=== PATIENT | male | born 1945 | race Caucasian/White ===

== ENCOUNTER 2016-11-08 10:25 | Emergency (ER) | payer BC ==
[~2016-11-08] VITALS: Ht 175.3 cm; Wt 80.7 kg
--- NOTE | 2016-11-08 10:25 | NUR ---
sharp lower back pain radiates to RLE and back pain x 10 days, worse today. nad noted. pt aao x4, amb with steady gait, 10/10 pain. pending md fall.
[2016-11-08] MEDS ORDERED: KETOROLAC TROMETHAMINE INJ 30 MG/ML VIAL ONE (10:36)
[2016-11-08] MEDS ORDERED: DEXAMETHASONE SOD PHOSPHATE 10 MG/ML VIAL ONE (10:36)
[2016-11-08] MEDS ORDERED: HYDROCODONE/APAP 5/325MG 1 EACH TABLET ONE (10:36)
[2016-11-08 10:47] LABS: BASOPHILS % (AUTO) 0.3 % (0.0-2.0); EOSINOPHILS # (AUTO) 0.2 /CMM (0.0-0.7); HEMATOCRIT 46 % (39-51); HEMOGLOBIN 15.8 g/dL (13.5-17.5); LYMPHOCYTES % (AUTO) 27.3 % (20.0-44.0); MEAN CORPUSCULAR HEMOGLOBIN 35 PG (26.0-33.0); MEAN CORPUSCULAR HGB CONC 35 g/dl (31.0-36.0); MEAN CORPUSCULAR VOLUME 101 fL (80-96); MONOCYTES # (AUTO) 0.4 /CMM (0.1-1.30); MONOCYTES % (AUTO) 5.8 % (2.0-12.0); NEUTROPHILS # (AUTO) 4.6 /CMM (1.8-8.9); NEUTROPHILS % (AUTO) 63.6 % (43.0-81.0); PLATELET COUNT (AUTO) 153 /CMM (150-450); RDW COEFFICIENT OF VARIATION 13.2 (11.5-15.0); RED BLOOD CELL COUNT(AUTO) 4.51 MIL/uL (4.5-6.0); WHITE BLOOD COUNT (AUTO) 7.2 K/uL (4.3-11.0)
[2016-11-08 10:55] LABS: CALCIUM, SERUM 8.6 mg/dL (8.5-10.1); CREATININE 1.3 mg/dL (0.6-1.3); POTASSIUM 3.2 mmol/L (3.5-5.1)
[2016-11-08] MEDS ORDERED: DEXAMETHASONE SOD PHOSPHATE 10 MG/ML VIAL IV ONE (11:00)
[2016-11-08] MEDS ORDERED: HYDROCODONE/APAP 5/325MG 1 EACH TABLET PO ONE (11:00)
[2016-11-08] MEDS ORDERED: KETOROLAC TROMETHAMINE INJ 30 MG/ML VIAL IV ONE (11:00)
[2016-11-08] MEDS ORDERED: MORPHINE SULFATE INJ 4 MG/ML DISP.SYRIN ONE (11:04)
[2016-11-08] MEDS ORDERED: ONDANSETRON HCL/PF 4 MG/2 ML VIAL ONE (11:04)
[2016-11-08] MEDS ORDERED: POTASSIUM CHLORIDE 20 MEQ TAB.PRT.SR PO ONE ×2 (11:15→11:30)
[2016-11-08] MEDS ORDERED: LORAZEPAM INJ 2 MG/ML VIAL ONE (11:20)
[2016-11-08] MEDS ORDERED: LORAZEPAM INJ 2 MG/ML VIAL IV ONE (11:30)
[2016-11-08] MEDS ORDERED: ONDANSETRON HCL/PF 4 MG/2 ML VIAL IV ONE (11:30)
[2016-11-08] MEDS ORDERED: MORPHINE SULFATE INJ 10 MG/ML DISP.SYRIN IV ONE (11:30)
[2016-11-08] MEDS ORDERED: IOHEXOL-300 100 ML VIAL IV ONE (11:40)
[2016-11-08] MEDS ORDERED: CT SWABBABLE VALVE TRANS SET 1 EA INFUS.SET MC ONE (11:40)
[2016-11-08] MEDS ORDERED: IV NS 0.9% 250 ML IV ONE (11:40)
--- NOTE | 2016-11-08 12:10 | NUR ---
back from ct scan
[2016-11-08 14:07] VITALS: BP 134/72
== END 2016-11-08 14:08 | disposition home or self-care (01) ==
LOC: ER 10:27
DX: M54.31 Sciatica, right side (principal); Z88.6 Allergy status to analgesic agent
CPT/HCPCS: 36415; 72131-TC; 80048-TC; 85025-TC; A4606; J1100; J1885; J2060; J2270; J2405; J7050; Q9967; Z7610

== ENCOUNTER 2021-05-08 21:05 | Emergency (ER) | payer BC, MEDICARE, OTHER ==
[~2021-05-08] VITALS: Ht 175.3 cm; Wt 79.4 kg
--- NOTE | 2021-05-08 21:17 | NUR ---
BIBRA FROM HOME C/O MULTIPLE SUPERFICIAL R ARM LACERATIONS AND L BIG TOE NAIL INJURY FOLLOWING A HOME INVASION. PT ALERT AND ORIENTED NO NEURO DEFICITS NOTED PLACED IN CERVICAL COLLAR. PLACED INTO GOWN AND MONITOR AND PULSE OX. VITAL SIGNS STABLE MD WAS AT BEDSIDE FOR EVAL.
--- NOTE | 2021-05-08 21:17 | NUR ---
Note alfreda in EDM - 05/08/21 at 2308 by JERE BIBRA FROM HOME C/O MULTIPLE SUPERFICIAL R ARM LACERATIONS AND B TOE NAIL BED INJURY FOLLOWING A HOME INVASION. PT ALERT AND ORIENTED NO NEURO DEFICITS NOTED PLACED IN CERVICAL COLLAR. PLACED INTO GOWN AND MONITOR AND PULSE OX. VITAL SIGNS STABLE MD WAS AT BEDSIDE FOR EVAL.
--- NOTE | 2021-05-08 21:50 | NUR ---
BROUGHT TO CT
[2021-05-08] MEDS ORDERED: BUPIVACAINE 0.5 % PF 150 MG/30 ML VIAL ONE (22:28)
[2021-05-08] MEDS ORDERED: LIDOCAINE 0.5% HCL 50 ML VIAL ONE (22:28)
[2021-05-08] MEDS ORDERED: TDAP [DIPH/PERTUSSIS/TET] 0.5 ML VIAL IM ONE ×2 (22:30→22:53)
[2021-05-08] MEDS ORDERED: CEPH500T PO (22:47)
[2021-05-08] MEDS ORDERED: CEPHALEXIN MONOHYDRATE 500 MG CAPSULE PO ONE ×2 (22:52→23:00)
[2021-05-08] MEDS ORDERED: HYDROCODONE/APAP 5/325MG TABLET ONE (22:52)
[2021-05-08] MEDS ORDERED: HYDROCODONE/APAP 5/325MG TABLET PO ONE (23:00)
[2021-05-08 23:24] VITALS: BP 136/84
--- NOTE | 2021-05-08 23:24 | NUR ---
Patient discharged to home in stable condition. Written and verbal after care instructions given. Patient verbalizes understanding of instruction.
== END 2021-05-08 23:25 | disposition home or self-care (01) ==
LOC: ER 21:08
DX: S13.4XXA Sprain of ligaments of cervical spine, initial encounter (principal); S50.11XA Contusion of right forearm, initial encounter; S50.311A Abrasion of right elbow, initial encounter; S91.202A Unspecified open wound of left great toe with damage to nail, initial encounter; Z90.49 Acquired absence of other specified parts of digestive tract; Z98.890 Other specified postprocedural states; Y08.89XA Assault by other specified means, initial encounter; Y93.89 Activity, other specified; Y92.098 Other place in other non-institutional residence as the place of occurrence of the external cause; Y99.8 Other external cause status
CPT/HCPCS: 11730; 72125; 73080; 73630; 90471; 90715; 99284; A6403 ×3; J3490 ×2

== ENCOUNTER 2024-09-17 22:49 | Inpatient (IN) | payer MEDICARE, OTHER ==
[~2024-09-17] VITALS: Ht 165.1 cm; Wt 68.6 kg
[~2024-09-17 22:49] MED LIST: CEPH500T PO
[2024-09-17] MEDS ORDERED: METOCLOPRAMIDE HCL 10 MG/2 ML VIAL ONE (23:25)
[2024-09-17] MEDS ORDERED: GLUCAGON,HUMAN RECOMBINANT 1 MG/VIAL VIAL ONE (23:25)
[2024-09-17] MEDS: GLUCAGON,HUMAN RECOMBINANT 1 MG/VIAL VIAL IV ONE (23:30)
[2024-09-17] MEDS: IV NS 0.9% 1,000 ML BAG IV ONE (23:30)
[2024-09-17] MEDS: METOCLOPRAMIDE HCL 10 MG/2 ML VIAL IV ONE (23:30)
[2024-09-17 23:42] LABS: BASOPHILS # (AUTO) 0.1 K/uL (0.0-0.2); BASOPHILS % (AUTO) 0.7 % (0.0-2.0); EOSINOPHILS # (AUTO) 0.4 K/uL (0.0-0.7); HEMATOCRIT 33 % (39-51); HEMOGLOBIN 11.3 g/dL (13.5-17.5); LYMPHOCYTES # (AUTO) 2.3 K/uL (0.8-4.8); LYMPHOCYTES % (AUTO) 28.6 % (20.0-44.0); MEAN CORPUSCULAR HEMOGLOBIN 31 PG (26.0-33.0); MEAN CORPUSCULAR HGB CONC 34 g/dl (31.0-36.0); MEAN CORPUSCULAR VOLUME 92 fL (80-96); MONOCYTES # (AUTO) 0.7 K/uL (0.1-1.30); NEUTROPHILS # (AUTO) 4.6 K/uL (1.8-8.9); NEUTROPHILS % (AUTO) 56.7 % (43.0-81.0); PLATELET COUNT (AUTO) 259 K/uL (150-450); RED BLOOD CELL COUNT(AUTO) 3.61 MIL/uL (4.5-6.0); RED CELL DISTRIBUTION WIDTH 14.1 % (11.5-15.0); WHITE BLOOD COUNT (AUTO) 8.2 K/uL (4.3-11.0)
[2024-09-17 23:53] LABS: CALCIUM, SERUM 9.5 mg/dL (8.5-10.1); CREATININE 1.4 mg/dL (0.6-1.3); POTASSIUM 3.8 mmol/L (3.5-5.1)
[2024-09-17 23:54] LABS: INR 1.15 (0.91-1.10); PARTIAL THROMBOPLASTIN TIME 29.6 SEC (24.3-34.3); PROTHROMBIN TIME 12.1 SECS (9.2-11.1)
[2024-09-18] VITALS (33 sets, daily range): BP systolic 94–136; BP diastolic 59–81; TEMP 98–98.2; O2SAT 96–99
[2024-09-18] MEDS ORDERED: IV NS 0.9% 250 ML IV ONE (00:27)
[2024-09-18] MEDS ORDERED: CT SWABBABLE VALVE TRANS SET 1 EA INFUS.SET MC ONE (00:27)
[2024-09-18] MEDS ORDERED: IOHEXOL-300 100 ML VIAL IV ONE (00:27)
[2024-09-18] MEDS: methylPREDNISolone SOD SUCC 125 MG/2ML VIAL IV ONE (01:00)
[2024-09-18] MEDS: FAMOTIDINE/PF INJ 20 MG/2 ML VIAL IV ONE ×2 (01:00→03:26)
[2024-09-18] MEDS: diphenhydrAMINE HCL 50 MG/ML VIAL IV ONE (01:00)
[2024-09-18] MEDS: ALBUTEROL FS 2.5 MG/3 ML VIAL.NEB CONTNEB ONE (01:00)
[2024-09-18] MEDS: IPRATROPIUM NEB FS 0.5 MG/2.5 ML AMPUL.NEB NEB ONE (01:00)
[2024-09-18] MEDS ORDERED: FAMOTIDINE/PF INJ 20 MG/2 ML VIAL IV ONE ×2 (01:19→03:24)
[2024-09-18] MEDS: PROPOFOL 100 ML IV PRN ×2 (01:30→09:15)
[2024-09-18] MEDS ORDERED: PROPOFOL 100 ML ONE ×2 (01:34→07:08)
[2024-09-18] MEDS: EPINEPHRINE (1:1000) 1 MG/ML AMPUL SUBCUT ONE (01:42)
[2024-09-18] MEDS: IV NS 0.9% 1,000 ML BAG IV ONE (01:58)
[2024-09-18] MEDS ORDERED: diphenhydrAMINE HCL 50 MG/ML VIAL ONE (02:35)
[2024-09-18] MEDS ORDERED: methylPREDNISolone SOD SUCC 125 MG/2ML VIAL ONE (02:35)
[2024-09-18 02:45] LABS: ABG BASE EXCESS -3.9 mmol/L (-2.0-3.0); ABG OXYGEN SATURATION 99.2 % (94.0-98.0); ABG PCO2 33.7 mmHg (35.0-48.0); ABG PH 7.397 (7.350-7.450); ABG PO2 230.7 mmHg (83.0-108.0); ABG TOTAL HEMOGLOBIN 10.6 G/dL (13.5-17.5); COHb 0.2 % (0.5-1.5); O2Hb 98.9 % (94.0-97.0); SITE, ABG RIGHT RADIAL
[2024-09-18 02:46] LABS: MetHb 0.1 % (0.0-1.5); PEEP,BG 5 cm H2O; VT, ABG 500 mL
[2024-09-18] MEDS ORDERED: ALBUTEROL FS 2.5 MG/3 ML VIAL.NEB NEB PRN (04:00)
[2024-09-18] MEDS ORDERED: ONDANSETRON HCL/PF 4 MG/2 ML VIAL IVP PRN (04:00)
[2024-09-18] MEDS ORDERED: ACETAMINOPHEN 650 MG/SUPP.RECT RC PRN (04:00)
[2024-09-18 05:35] LABS: BASOPHILS % (AUTO) 0.2 % (0.0-2.0); EOSINOPHILS % (AUTO) 0.1 % (0.0-6.0); HEMATOCRIT 30 % (39-51); HEMOGLOBIN 10.5 g/dL (13.5-17.5); LYMPHOCYTES # (AUTO) 0.7 K/uL (0.8-4.8); LYMPHOCYTES % (AUTO) 7.1 % (20.0-44.0); MEAN CORPUSCULAR HEMOGLOBIN 32 PG (26.0-33.0); MEAN CORPUSCULAR HGB CONC 35 g/dl (31.0-36.0); MEAN CORPUSCULAR VOLUME 92 fL (80-96); MONOCYTES # (AUTO) 0.2 K/uL (0.1-1.30); MONOCYTES % (AUTO) 2.1 % (2.0-12.0); NEUTROPHILS # (AUTO) 8.9 K/uL (1.8-8.9); NEUTROPHILS % (AUTO) 90.5 % (43.0-81.0); PLATELET COUNT (AUTO) 216 K/uL (150-450); RED BLOOD CELL COUNT(AUTO) 3.27 MIL/uL (4.5-6.0); RED CELL DISTRIBUTION WIDTH 14.1 % (11.5-15.0); WHITE BLOOD COUNT (AUTO) 9.9 K/uL (4.3-11.0)
[2024-09-18 05:49] LABS: CALCIUM, SERUM 8.1 mg/dL (8.5-10.1); CARBON DIOXIDE 28 mmol/L (21-32); CHLORIDE 107 mmol/L (98-107); CREATININE 1.4 mg/dL (0.6-1.3); GLUCOSE 163 mg/dL (74-106); MAGNESIUM 2.1 mg/dL (1.8-2.4); PHOSPHORUS 1.9 mg/dL (2.5-4.9); POTASSIUM 4.2 mmol/L (3.5-5.1); SODIUM SERUM 142 mmol/L (136-145); UREA NITROGEN, BLOOD 20 mg/dL (7-18)
[2024-09-18] MEDS ORDERED: ENOXAPARIN SODIUM 40 MG/0.4 ML DISP.SYRIN SQ ONE (07:39)
[2024-09-18] MEDS: ENOXAPARIN SODIUM 40 MG/0.4 ML DISP.SYRIN SQ SCH (07:43)
[2024-09-18] MEDS: IV NS 0.9% 1,000 ML IV PRN (09:15)
[2024-09-18] MEDS: PANTOPRAZOLE 40 MG VIAL IV SCH (10:09)
[2024-09-18] MEDS: CEFEPIME 2 GM in IV D5W 100 ML IV SCH (10:09)
[2024-09-18] MEDS: VANCOMYCIN 1 GM in IV D5W 250ml IV ONE (11:28)
[2024-09-18] MEDS ORDERED: DOXY-326 PO (11:48)
[2024-09-18] MEDS ORDERED: HYDR-3976 PO (11:48)
[2024-09-18] MEDS ORDERED: BENZ-38 PO (11:48)
[2024-09-18] MEDS ORDERED: AMLO-212 PO (11:48)
[2024-09-18] MEDS ORDERED: ASPI-866 PO (11:48)
[2024-09-18] MEDS ORDERED: MULT-213 PO (11:48)
[2024-09-18] MEDS ORDERED: VITA1TAB56 PO (11:48)
[2024-09-18] MEDS ORDERED: ZOLP10TA2 PO (11:48)
[2024-09-18] MEDS ORDERED: ESOM20CA37 PO (11:48)
[2024-09-18] MEDS: VANCOMYCIN 750 MG in IV D5W 250 ML IV ONE (12:35)
[2024-09-18] MEDS ORDERED: EPINEPHRINE (1:1000) 1 MG/ML AMPUL SUBCUT ONE (13:19)
[2024-09-18] MEDS: Sodium Phosphate 15 MMOL in IV NS 0.9% 245 ML IV SCH (16:12)
[2024-09-19] VITALS (27 sets, daily range): BP systolic 100–152; BP diastolic 55–79; TEMP 97.6–98.5; O2SAT 96–100
[2024-09-19 04:28] LABS: ABG BASE EXCESS -1.7 mmol/L (-2.0-3.0); ABG OXYGEN SATURATION 98.3 % (94.0-98.0); ABG PCO2 29.2 mmHg (35.0-48.0); ABG PH 7.474 (7.350-7.450); ABG PO2 129.9 mmHg (83.0-108.0); ABG TOTAL HEMOGLOBIN 11.6 G/dL (13.5-17.5); COHb 0.3 % (0.5-1.5); MetHb 0.2 % (0.0-1.5); O2Hb 97.8 % (94.0-97.0); PEEP,BG 5 cm H2O; SITE, ABG RIGHT RADIAL; VT, ABG 500 mL
[2024-09-19 04:49] LABS: HEMATOCRIT 27 % (39-51); HEMOGLOBIN 9.4 g/dL (13.5-17.5); LYMPHOCYTES # (AUTO) 1.5 K/uL (0.8-4.8); LYMPHOCYTES % (AUTO) 15.1 % (20.0-44.0); MEAN CORPUSCULAR HEMOGLOBIN 32 PG (26.0-33.0); MEAN CORPUSCULAR HGB CONC 35 g/dl (31.0-36.0); MEAN CORPUSCULAR VOLUME 92 fL (80-96); MONOCYTES # (AUTO) 0.5 K/uL (0.1-1.30); MONOCYTES % (AUTO) 5.7 % (2.0-12.0); NEUTROPHILS # (AUTO) 7.6 K/uL (1.8-8.9); NEUTROPHILS % (AUTO) 79.2 % (43.0-81.0); PLATELET COUNT (AUTO) 183 K/uL (150-450); RED CELL DISTRIBUTION WIDTH 13.6 % (11.5-15.0); WHITE BLOOD COUNT (AUTO) 9.7 K/uL (4.3-11.0)
[2024-09-19 04:58] LABS: CREATININE 1.1 mg/dL (0.6-1.3); MAGNESIUM 2.1 mg/dL (1.8-2.4); POTASSIUM 3.6 mmol/L (3.5-5.1)
[2024-09-19] MEDS: VANCOMYCIN 1 GM in IV D5W 250ml IV SCH (12:03)
[2024-09-19] MEDS ORDERED: MIDAZOLAM HCL 100 MG in IV NS 0.9% 80 ML IV PRN (21:00)
[2024-09-19] MEDS: LORAZEPAM INJ 2 MG/ML VIAL IV PRN (21:12)
[2024-09-19] MEDS: PRECEDEX 400 MCG/100 ML BOTTLE 100 ML IV PRN (21:41)
[2024-09-20] VITALS (30 sets, daily range): BP systolic 104–199; BP diastolic 61–99; TEMP 96.5–98; O2SAT 92–99
[2024-09-20 04:07] LABS: IMMUNOGLOBULIN A, SERUM 709 mg/dL (61-437); IMMUNOGLOBULIN G, SERUM 1631 mg/dL (603-1613); IMMUNOGLOBULIN M, SERUM 17 mg/dL (15-143)
[2024-09-20 04:33] LABS: BASOPHILS % (AUTO) 0.7 % (0.0-2.0); EOSINOPHILS # (AUTO) 0.1 K/uL (0.0-0.7); EOSINOPHILS % (AUTO) 0.8 % (0.0-6.0); HEMATOCRIT 29 % (39-51); HEMOGLOBIN 9.8 g/dL (13.5-17.5); LYMPHOCYTES # (AUTO) 1.9 K/uL (0.8-4.8); LYMPHOCYTES % (AUTO) 30.1 % (20.0-44.0); MEAN CORPUSCULAR HEMOGLOBIN 31 PG (26.0-33.0); MEAN CORPUSCULAR HGB CONC 34 g/dl (31.0-36.0); MEAN CORPUSCULAR VOLUME 92 fL (80-96); MONOCYTES # (AUTO) 0.3 K/uL (0.1-1.30); MONOCYTES % (AUTO) 5.6 % (2.0-12.0); NEUTROPHILS % (AUTO) 62.8 % (43.0-81.0); PLATELET COUNT (AUTO) 164 K/uL (150-450); RED BLOOD CELL COUNT(AUTO) 3.13 MIL/uL (4.5-6.0); RED CELL DISTRIBUTION WIDTH 13.9 % (11.5-15.0); WHITE BLOOD COUNT (AUTO) 6.3 K/uL (4.3-11.0)
[2024-09-20 05:00] LABS: CALCIUM, SERUM 8.1 mg/dL (8.5-10.1); CREATININE 1.1 mg/dL (0.6-1.3); MAGNESIUM 2.4 mg/dL (1.8-2.4); PHOSPHORUS 2.6 mg/dL (2.5-4.9); POTASSIUM 3.7 mmol/L (3.5-5.1)
[2024-09-20 06:09] LABS: FOLIC ACID 12.3 ng/mL (>3.0)
[2024-09-20 07:12] LABS: FREE KAPPA LT CHAINS SERUM 32.3 mg/L (3.3-19.4); FREE LAMBDA LT CHAIN SERUM 38.3 mg/L (5.7-26.3); KAPPA/LAMBDA RATIO SERUM 0.84 (0.26-1.65)
[2024-09-20] MEDS: ENOXAPARIN SODIUM 40 MG/0.4 ML DISP.SYRIN SQ SCH (08:48)
[2024-09-20] MEDS: IV 1/2NS 1000 ML 1,000 ML IV PRN (13:45)
[2024-09-20 17:07] LABS: *SPE A/G RATIO 0.6 (0.7-1.7); *SPE ALBUMIN 2.3 g/dL (2.9-4.4); *SPE ALPHA-1-GLOBULIN 0.4 g/dL (0.0-0.4); *SPE ALPHA-2-GLOBULIN 0.9 g/dL (0.4-1.0); *SPE BETA GLOBULIN 1.1 g/dL (0.7-1.3); *SPE M-SPIKE Not Observed g/dL (Not Observed); *SPE PROTEIN TOTAL 6.3 g/dL (6.0-8.5); *SPEGAMMA GLOBULIN 1.7 g/dL (0.4-1.8)
[2024-09-21] VITALS (92 sets, daily range): BP systolic 61–184; BP diastolic 41–82; TEMP 96.5–98.3; O2SAT 83–100
[2024-09-21] MEDS: NOREPINEPHRINE 8 MG in IV D5W 242 ML IV PRN (01:03)
[2024-09-21] MEDS: NOREPINEPHRINE 8MG/250ML RTU 250 ML IV ONE (01:24)
[2024-09-21 04:54] LABS: BASOPHILS # (AUTO) 0.1 K/uL (0.0-0.2); BASOPHILS % (AUTO) 0.5 % (0.0-2.0); EOSINOPHILS # (AUTO) 0.1 K/uL (0.0-0.7); EOSINOPHILS % (AUTO) 1.2 % (0.0-6.0); HEMATOCRIT 32 % (39-51); LYMPHOCYTES # (AUTO) 1.8 K/uL (0.8-4.8); LYMPHOCYTES % (AUTO) 15.9 % (20.0-44.0); MEAN CORPUSCULAR HEMOGLOBIN 31 PG (26.0-33.0); MEAN CORPUSCULAR HGB CONC 34 g/dl (31.0-36.0); MEAN CORPUSCULAR VOLUME 92 fL (80-96); MONOCYTES # (AUTO) 0.8 K/uL (0.1-1.30); MONOCYTES % (AUTO) 6.7 % (2.0-12.0); NEUTROPHILS # (AUTO) 8.7 K/uL (1.8-8.9); NEUTROPHILS % (AUTO) 75.7 % (43.0-81.0); PLATELET COUNT (AUTO) 201 K/uL (150-450); RED BLOOD CELL COUNT(AUTO) 3.52 MIL/uL (4.5-6.0); RED CELL DISTRIBUTION WIDTH 14.3 % (11.5-15.0); WHITE BLOOD COUNT (AUTO) 11.5 K/uL (4.3-11.0)
[2024-09-21] MEDS ORDERED: TPN/PPN PER PHARMACY IV PRN (07:30)
[2024-09-21] MEDS: HYDROCORTISONE SOD SUCCINATE 100 MG/2 ML VIAL IV SCH (10:18)
[2024-09-21 11:53] LABS: ALBUMIN 2.5 g/dL (3.4-5.0); BILIRUBIN,TOTAL 0.6 mg/dL (0.2-1.0); CREATININE 1.2 mg/dL (0.6-1.3); MAGNESIUM 2.4 mg/dL (1.8-2.4); PHOSPHORUS 3.4 mg/dL (2.5-4.9); POTASSIUM 3.5 mmol/L (3.5-5.1); TOTAL PROTEIN, SERUM 7.6 g/dL (6.4-8.2)
[2024-09-21] MEDS: PPN #1 IV SCH (13:53)
[2024-09-21] MEDS: PROPOFOL 100 ML IV PRN (19:38)
[2024-09-22] VITALS (53 sets, daily range): BP systolic 94–159; BP diastolic 57–101; TEMP 98–98.5; O2SAT 90–100
[2024-09-22 04:52] LABS: CHOLESTEROL 153 mg/dL (<200); HDL CHOLESTEROL 37 mg/dL (40-60); LDL 99 mg/dL (0-99); TRIGLYCERIDES 166 mg/dL (30-150)
[2024-09-22 08:26] LABS: CALCIUM, SERUM 8.1 mg/dL (8.5-10.1); CREATININE 1.1 mg/dL (0.6-1.3); MAGNESIUM 2.3 mg/dL (1.8-2.4); PHOSPHORUS 3.5 mg/dL (2.5-4.9); POTASSIUM 3.8 mmol/L (3.5-5.1)
[2024-09-22 09:20] LABS: BASOPHILS # (AUTO) 0.1 K/uL (0.0-0.2); BASOPHILS % (AUTO) 0.7 % (0.0-2.0); EOSINOPHILS % (AUTO) 0.2 % (0.0-6.0); HEMATOCRIT 31 % (39-51); HEMOGLOBIN 10.4 g/dL (13.5-17.5); LYMPHOCYTES % (AUTO) 13.2 % (20.0-44.0); MEAN CORPUSCULAR HEMOGLOBIN 31 PG (26.0-33.0); MEAN CORPUSCULAR HGB CONC 34 g/dl (31.0-36.0); MEAN CORPUSCULAR VOLUME 91 fL (80-96); MONOCYTES # (AUTO) 0.2 K/uL (0.1-1.30); MONOCYTES % (AUTO) 2.6 % (2.0-12.0); NEUTROPHILS # (AUTO) 6.3 K/uL (1.8-8.9); NEUTROPHILS % (AUTO) 83.3 % (43.0-81.0); PLATELET COUNT (AUTO) 163 K/uL (150-450); RED BLOOD CELL COUNT(AUTO) 3.38 MIL/uL (4.5-6.0); RED CELL DISTRIBUTION WIDTH 14.2 % (11.5-15.0); WHITE BLOOD COUNT (AUTO) 7.5 K/uL (4.3-11.0)
[2024-09-22] MEDS ORDERED: FAT EMULSION 20% 500 ML in PREMIX 1 EA IV SCH (14:00)
[2024-09-22] MEDS: PPN #2 IV SCH (15:29)
[2024-09-23] VITALS (24 sets, daily range): BP systolic 95–159; BP diastolic 52–70; TEMP 97.7–98.4; O2SAT 97–100
[2024-09-23 04:58] LABS: CALCIUM, SERUM 8.1 mg/dL (8.5-10.1); CREATININE 1.1 mg/dL (0.6-1.3); MAGNESIUM 2.5 mg/dL (1.8-2.4); PHOSPHORUS 3.1 mg/dL (2.5-4.9); POTASSIUM 3.6 mmol/L (3.5-5.1)
[2024-09-23 08:15] LABS: BASOPHILS % (AUTO) 0.3 % (0.0-2.0); EOSINOPHILS % (AUTO) 0.2 % (0.0-6.0); HEMATOCRIT 32 % (39-51); LYMPHOCYTES # (AUTO) 1.5 K/uL (0.8-4.8); LYMPHOCYTES % (AUTO) 17.7 % (20.0-44.0); MEAN CORPUSCULAR HEMOGLOBIN 31 PG (26.0-33.0); MEAN CORPUSCULAR HGB CONC 34 g/dl (31.0-36.0); MEAN CORPUSCULAR VOLUME 91 fL (80-96); MONOCYTES # (AUTO) 0.4 K/uL (0.1-1.30); MONOCYTES % (AUTO) 4.6 % (2.0-12.0); NEUTROPHILS # (AUTO) 6.4 K/uL (1.8-8.9); NEUTROPHILS % (AUTO) 77.2 % (43.0-81.0); PLATELET COUNT (AUTO) 161 K/uL (150-450); RED BLOOD CELL COUNT(AUTO) 3.52 MIL/uL (4.5-6.0); RED CELL DISTRIBUTION WIDTH 14.5 % (11.5-15.0); WHITE BLOOD COUNT (AUTO) 8.3 K/uL (4.3-11.0)
[2024-09-23] MEDS ORDERED: AMLODIPINE BESYLATE 5 MG TABLET PO SCH (09:00)
[2024-09-23] MEDS ORDERED: ASPIRIN EC 81 MG TABLET.DR PO SCH (09:00)
[2024-09-23] MEDS ORDERED: DEXTROSE 50%-WATER 50 ML DISP.SYRIN IV PRN (10:30)
[2024-09-23] MEDS: BLOOD SUGAR DIAGNOSTIC 1 EACH STRIP IN SCH (12:10)
[2024-09-23] MEDS: PPN #3 IV SCH (12:20)
[2024-09-23] MEDS: INSULIN REGULAR, HUMAN 100 UNIT/ML 3 ML VIAL SQ PRN (13:11)
[2024-09-23] MEDS: POTASSIUM CL. PREMIX PERIPHER. 50 ML IV SCH (19:33)
[2024-09-24] VITALS (42 sets, daily range): BP systolic 94–157; BP diastolic 53–87; TEMP 97.5–98; O2SAT 85–100
[2024-09-24] MEDS: PPN #4 IV SCH (01:56)
[2024-09-24 04:37] LABS: CALCIUM, SERUM 8.5 mg/dL (8.5-10.1); CREATININE 0.9 mg/dL (0.6-1.3); MAGNESIUM 2.4 mg/dL (1.8-2.4); PHOSPHORUS 2.8 mg/dL (2.5-4.9); POTASSIUM 3.4 mmol/L (3.5-5.1)
[2024-09-24 09:31] LABS: BASOPHILS # (AUTO) 0.1 K/uL (0.0-0.2); BASOPHILS % (AUTO) 0.7 % (0.0-2.0); EOSINOPHILS % (AUTO) 0.1 % (0.0-6.0); HEMATOCRIT 31 % (39-51); HEMOGLOBIN 10.7 g/dL (13.5-17.5); LYMPHOCYTES # (AUTO) 1.4 K/uL (0.8-4.8); LYMPHOCYTES % (AUTO) 14.7 % (20.0-44.0); MEAN CORPUSCULAR HEMOGLOBIN 32 PG (26.0-33.0); MEAN CORPUSCULAR HGB CONC 35 g/dl (31.0-36.0); MEAN CORPUSCULAR VOLUME 92 fL (80-96); MONOCYTES # (AUTO) 0.5 K/uL (0.1-1.30); MONOCYTES % (AUTO) 4.9 % (2.0-12.0); NEUTROPHILS # (AUTO) 7.4 K/uL (1.8-8.9); NEUTROPHILS % (AUTO) 79.6 % (43.0-81.0); PLATELET COUNT (AUTO) 159 K/uL (150-450); RED BLOOD CELL COUNT(AUTO) 3.37 MIL/uL (4.5-6.0); RED CELL DISTRIBUTION WIDTH 14.6 % (11.5-15.0); WHITE BLOOD COUNT (AUTO) 9.3 K/uL (4.3-11.0)
[2024-09-24] MEDS: POTASSIUM CL. PREMIX PERIPHER. 50 ML IV SCH (10:44)
[2024-09-24] MEDS ORDERED: PPN #5 IV SCH (16:19)
[2024-09-24] MEDS: PPN BAG #5 IV SCH (16:22)
[2024-09-25] VITALS (66 sets, daily range): BP systolic 97–171; BP diastolic 51–68; TEMP 96.9–97.7; O2SAT 92–100
[2024-09-25 04:40] LABS: BASOPHILS % (AUTO) 0.2 % (0.0-2.0); EOSINOPHILS % (AUTO) 0.1 % (0.0-6.0); HEMATOCRIT 31 % (39-51); HEMOGLOBIN 10.7 g/dL (13.5-17.5); LYMPHOCYTES # (AUTO) 1.3 K/uL (0.8-4.8); LYMPHOCYTES % (AUTO) 17.6 % (20.0-44.0); MEAN CORPUSCULAR HEMOGLOBIN 32 PG (26.0-33.0); MEAN CORPUSCULAR HGB CONC 35 g/dl (31.0-36.0); MEAN CORPUSCULAR VOLUME 91 fL (80-96); MONOCYTES # (AUTO) 0.6 K/uL (0.1-1.30); MONOCYTES % (AUTO) 7.6 % (2.0-12.0); NEUTROPHILS # (AUTO) 5.7 K/uL (1.8-8.9); NEUTROPHILS % (AUTO) 74.5 % (43.0-81.0); PLATELET COUNT (AUTO) 138 K/uL (150-450); RED BLOOD CELL COUNT(AUTO) 3.41 MIL/uL (4.5-6.0); RED CELL DISTRIBUTION WIDTH 14.4 % (11.5-15.0); WHITE BLOOD COUNT (AUTO) 7.7 K/uL (4.3-11.0)
[2024-09-25 05:06] LABS: CALCIUM, SERUM 8.2 mg/dL (8.5-10.1); MAGNESIUM 2.3 mg/dL (1.8-2.4); PHOSPHORUS 2.7 mg/dL (2.5-4.9); POTASSIUM 3.7 mmol/L (3.5-5.1)
[2024-09-25 05:54] LABS: LYMPHOCYTES % (MANUAL) 19 % (16-48); MONOCYTES % (MANUAL) 10 % (0-11.0); NEUTROPHILS % (MANUAL) 71 (42-76); PLATELET ESTIMATE DECREASED
[2024-09-25] MEDS ORDERED: PPN #6 IV SCH (06:47)
[2024-09-25] MEDS: LORAZEPAM INJ 2 MG/ML VIAL IV PRN (12:39)
[2024-09-25] MEDS: PPN BAG #6 IV SCH (20:31)
[2024-09-25 20:43] LABS: INR 1.03 (0.91-1.10); PROTHROMBIN TIME 10.9 SECS (9.2-11.1)
[2024-09-26] VITALS (46 sets, daily range): BP systolic 96–172; BP diastolic 55–85; TEMP 97–98.8; O2SAT 90–100
[2024-09-26 04:34] LABS: CALCIUM, SERUM 8.3 mg/dL (8.5-10.1); CREATININE 0.8 mg/dL (0.6-1.3); MAGNESIUM 2.5 mg/dL (1.8-2.4); PHOSPHORUS 2.7 mg/dL (2.5-4.9); POTASSIUM 4.1 mmol/L (3.5-5.1)
[2024-09-26] MEDS ORDERED: FENTANYL PF 100MCG/2ML AMPUL IV PRN (08:00)
[2024-09-26] MEDS ORDERED: VECURONIUM 10 MG VIAL IV ONE (08:00)
[2024-09-26] MEDS ORDERED: MIDAZOLAM HCL 5 MG/5ML VIAL IV ONE (08:00)
[2024-09-26 09:14] LABS: BASOPHILS # (AUTO) 0.1 K/uL (0.0-0.2); BASOPHILS % (AUTO) 1.4 % (0.0-2.0); EOSINOPHILS # (AUTO) 0.1 K/uL (0.0-0.7); EOSINOPHILS % (AUTO) 1.2 % (0.0-6.0); HEMATOCRIT 33 % (39-51); HEMOGLOBIN 11.3 g/dL (13.5-17.5); LYMPHOCYTES # (AUTO) 1.5 K/uL (0.8-4.8); LYMPHOCYTES % (AUTO) 18.7 % (20.0-44.0); MEAN CORPUSCULAR HEMOGLOBIN 31 PG (26.0-33.0); MEAN CORPUSCULAR HGB CONC 34 g/dl (31.0-36.0); MEAN CORPUSCULAR VOLUME 92 fL (80-96); MONOCYTES # (AUTO) 0.6 K/uL (0.1-1.30); MONOCYTES % (AUTO) 7.3 % (2.0-12.0); NEUTROPHILS # (AUTO) 5.6 K/uL (1.8-8.9); NEUTROPHILS % (AUTO) 71.4 % (43.0-81.0); PLATELET COUNT (AUTO) 167 K/uL (150-450); RED BLOOD CELL COUNT(AUTO) 3.62 MIL/uL (4.5-6.0); RED CELL DISTRIBUTION WIDTH 14.6 % (11.5-15.0); WHITE BLOOD COUNT (AUTO) 7.8 K/uL (4.3-11.0)
[2024-09-26] MEDS: MIDAZOLAM HCL 2 MG/2ML VIAL IV PRN (10:54)
[2024-09-26] MEDS: FENTANYL PF 100MCG/2ML AMPUL IV PRN (10:55)
[2024-09-26] MEDS: VECURONIUM 10 MG VIAL IV PRN (10:55)
[2024-09-26] MEDS: hydrALAZINE HCL IV 20 MG VIAL IV PRN (15:19)
[2024-09-26 15:20] LABS: LYMPHOCYTES % (MANUAL) 19 % (16-48); MONOCYTES % (MANUAL) 5 % (0-11.0); NEUTROPHILS % (MANUAL) 76 (42-76)
[2024-09-26 15:24] LABS: ANISOCYTOSIS 1+; PLATELET ESTIMATE ADEQUATE
[2024-09-27] VITALS (41 sets, daily range): BP systolic 90–175; BP diastolic 52–105; TEMP 97–98.3; O2SAT 93–99
[2024-09-27] MEDS: PPN IV SCH (00:30)
[2024-09-27 05:19] LABS: BASOPHILS % (AUTO) 0.4 % (0.0-2.0); EOSINOPHILS % (AUTO) 0.2 % (0.0-6.0); HEMATOCRIT 37 % (39-51); HEMOGLOBIN 12.4 g/dL (13.5-17.5); LYMPHOCYTES # (AUTO) 2.1 K/uL (0.8-4.8); LYMPHOCYTES % (AUTO) 18.8 % (20.0-44.0); MEAN CORPUSCULAR HEMOGLOBIN 31 PG (26.0-33.0); MEAN CORPUSCULAR HGB CONC 34 g/dl (31.0-36.0); MEAN CORPUSCULAR VOLUME 93 fL (80-96); MONOCYTES % (AUTO) 9.1 % (2.0-12.0); NEUTROPHILS # (AUTO) 7.9 K/uL (1.8-8.9); NEUTROPHILS % (AUTO) 71.5 % (43.0-81.0); PLATELET COUNT (AUTO) 137 K/uL (150-450); RED BLOOD CELL COUNT(AUTO) 3.97 MIL/uL (4.5-6.0); RED CELL DISTRIBUTION WIDTH 14.6 % (11.5-15.0)
[2024-09-27 05:32] LABS: ALBUMIN 2.2 g/dL (3.4-5.0); BILIRUBIN,TOTAL 0.4 mg/dL (0.2-1.0); CALCIUM, SERUM 8.6 mg/dL (8.5-10.1); CREATININE 0.8 mg/dL (0.6-1.3); POTASSIUM 3.8 mmol/L (3.5-5.1)
[2024-09-28] VITALS (18 sets, daily range): BP systolic 125–159; BP diastolic 63–84; TEMP 97.5–97.9; O2SAT 96–99
[2024-09-28 04:31] LABS: BASOPHILS % (AUTO) 0.1 % (0.0-2.0); EOSINOPHILS % (AUTO) 0.1 % (0.0-6.0); HEMATOCRIT 32 % (39-51); LYMPHOCYTES # (AUTO) 1.3 K/uL (0.8-4.8); LYMPHOCYTES % (AUTO) 13.6 % (20.0-44.0); MEAN CORPUSCULAR HEMOGLOBIN 31 PG (26.0-33.0); MEAN CORPUSCULAR HGB CONC 34 g/dl (31.0-36.0); MEAN CORPUSCULAR VOLUME 91 fL (80-96); MONOCYTES # (AUTO) 0.7 K/uL (0.1-1.30); NEUTROPHILS # (AUTO) 7.8 K/uL (1.8-8.9); NEUTROPHILS % (AUTO) 79.2 % (43.0-81.0); PLATELET COUNT (AUTO) 141 K/uL (150-450); RED BLOOD CELL COUNT(AUTO) 3.52 MIL/uL (4.5-6.0); RED CELL DISTRIBUTION WIDTH 14.5 % (11.5-15.0); WHITE BLOOD COUNT (AUTO) 9.9 K/uL (4.3-11.0)
[2024-09-28 04:46] LABS: MAGNESIUM 2.4 mg/dL (1.8-2.4); PHOSPHORUS 2.6 mg/dL (2.5-4.9)
[2024-09-28] MEDS: PPN BAG #8 IV SCH (05:20)
[2024-09-28] MEDS: Z GUARD REMEDY 4 OZ OINT TP PRN (06:06)
== END 2024-09-28 09:40 | disposition short-term general hospital (02) | DRG 4 ==
LOC: ER 23:01 → OBSER 09-18 07:18 → ICU 09-18 08:46
PROVIDERS: ADMIT Nurse Practitioner Family; ATTEND Internal Medicine
PROC: 5A12012 Performance of Cardiac Output, Single, Manual (ICD-10-PCS; 2024-09-17)
PROC: 5A1955Z Respiratory Ventilation, Greater than 96 Consecutive Hours (ICD-10-PCS; principal; 2024-09-18)
PROC: 0BH17EZ Insertion of Endotracheal Airway into Trachea, Via Natural or Artificial Opening (ICD-10-PCS; 2024-09-18)
PROC: 5A1955Z Respiratory Ventilation, Greater than 96 Consecutive Hours (ICD-10-PCS; 2024-09-23)
PROC: 0BH17EZ Insertion of Endotracheal Airway into Trachea, Via Natural or Artificial Opening (ICD-10-PCS; 2024-09-23)
PROC: 0B113F4 Bypass Trachea to Cutaneous with Tracheostomy Device, Percutaneous Approach (ICD-10-PCS; 2024-09-26)
PROC: 0BJ08ZZ Inspection of Tracheobronchial Tree, Via Natural or Artificial Opening Endoscopic (ICD-10-PCS; 2024-09-26)
PROC: 02HV33Z Insertion of Infusion Device into Superior Vena Cava, Percutaneous Approach (ICD-10-PCS; 2024-09-27)
PROC: B548ZZA Ultrasonography of Superior Vena Cava, Guidance (ICD-10-PCS; 2024-09-27)
DX: T17.298A Other foreign object in pharynx causing other injury, initial encounter (principal); I21.A1 Myocardial infarction type 2; J15.9 Unspecified bacterial pneumonia; J96.01 Acute respiratory failure with hypoxia; N17.0 Acute kidney failure with tubular necrosis; I46.9 Cardiac arrest, cause unspecified; J69.0 Pneumonitis due to inhalation of food and vomit; J90 Pleural effusion, not elsewhere classified; D62 Acute posthemorrhagic anemia; E87.0 Hyperosmolality and hypernatremia; Z99.11 Dependence on respirator [ventilator] status; W44.8XXA Other foreign body entering into or through a natural orifice, initial encounter; Y92.009 Unspecified place in unspecified non-institutional (private) residence as the place of occurrence of the external cause; M89.8X9 Other specified disorders of bone, unspecified site; Z20.822 Contact with and (suspected) exposure to COVID-19; Z86.79 Personal history of other diseases of the circulatory system; Z98.890 Other specified postprocedural states; Z90.49 Acquired absence of other specified parts of digestive tract; G93.9 Disorder of brain, unspecified; J39.2 Other diseases of pharynx; I10 Essential (primary) hypertension; D63.8 Anemia in other chronic diseases classified elsewhere; Z78.1 Physical restraint status; Z79.82 Long term (current) use of aspirin; Z87.01 Personal history of pneumonia (recurrent); Z93.0 Tracheostomy status; Z93.1 Gastrostomy status; R13.10 Dysphagia, unspecified
CPT/HCPCS: 31720; 36415; 36600; 70491-TC; 71045-TC; 80048-TC; 80053-TC; 80061-TC; 80202-TC; 82378; 82533; 82607-TC; 82728-TC; 82784; 82962-TC; 83540-TC; 83615-TC; 83735-TC; 84100-TC; 84155; 84165; 84443-TC; 84478-TC; 84484-TC; 85025-TC; 85610-TC; 85730-TC; 86334; 86850-TC; 87040-TC; 87081-TC; 93307-TC; 94002-TC; 94003-TC; 94799-TC; 99082-TC; A4216; A4223; A6403; A7526; A9563; G0378; J0171; J0360; J0692; J1200; J1610; J1650; J1720; J1815; J2060; J2250; J2470; J2765; J2919; J3010; J3370; J3371; J3480; J3490; J7030; J7040; J7050; J7060; Q9967